=== PATIENT | female | born 1945 | race African-American/Black ===

== ENCOUNTER 2021-09-21 07:01 | Emergency (ER) | payer OTHER ==
[2021-09-21] MEDS ORDERED: Boostrix 0.5 ML (Tdap) VIAL ONE (07:58)
== END 2021-09-21 10:30 | disposition home or self-care (01) ==
LOC: BURERS 07:01
DX: S01.81XA Laceration without foreign body of other part of head, initial encounter (principal); S40.011A Contusion of right shoulder, initial encounter; W06.XXXA Fall from bed, initial encounter; Z23 Encounter for immunization; M10.9 Gout, unspecified; I10 Essential (primary) hypertension; F17.220 Nicotine dependence, chewing tobacco, uncomplicated
CPT/HCPCS: 12011; 70450; 72125; 90471; 90715